=== PATIENT | male | born 1935 | race Caucasian/White ===

== ENCOUNTER 2018-07-08 10:41 | Emergency (ER) | payer OTHER ==
[2018-07-08] MEDS ORDERED: TETANUS & DIPHTHERIA TOX,ADULT 0.5 ML VIAL ONE (11:40)
[2018-07-08] MEDS ORDERED: ACETAMINOPHEN 500 MG TAB ONE (11:40)
--- NOTE | 2018-07-08 12:19 | RAD REPORT ---
EXAM DESCRIPTION: RAD - Elbow Right 3 View - 07/08/2018 12:10 pm CLINICAL HISTORY: Right elbow pain status post fall FINDINGS: No fracture or dislocation is seen. A wire is present within the proximal radius. Calcific ations in the soft tissues appear chronic
--- NOTE | 2018-07-08 12:28 | RAD REPORT ---
EXAM DESCRIPTION: RAD - Thoracic Spine Ap/Lat - 07/08/2018 12:10 pm CLINICAL HISTORY: Back pain FINDINGS: Mild kyphosis is present. The bones appear osteoporotic. Bridging osteophytes indicate diffuse idiopathic skeletal hyperostosis No fracture is seen. Mild spondylosis is present.
--- NOTE | 2018-07-08 12:56 | EDPHYS ---
Physician Documentation [facility] Name: Ozzy Villagran Age: 83 yrs Sex: Male : 1935 Arrival Date: 07/08/2018 Time: 10:43 Bed 4 Private MD: out of town, doctor ED Physician Derek Herrera HPI: 07/08 12:34 This 83 yrs old Male presents to ER via Ambulatory with complaints of Fall wa Injury, Skin Tear(s). 12:34 Details of fall: The patient fell from an upright position. Onset: The symptoms/episode wa began/occurred yesterday. Associated injuries: The patient sustained R elbow skin tear. mid-line upper back pain. Severity of symptoms: At their worst the symptoms were moderate, in the emergency department the symptoms are unchanged. The patient has not experienced similar symptoms in the past. The patient has not recently seen a physician. 12:35 denies LOC. denies FRANKLIN. denies chest pain or SOB. reason for fall unknown. wa Historical: - Allergies: 10:59 Codeine; aj - Home Meds: 10:59 amlodipine 10 mg tab 1 tab once daily [Active]; baclofen 10 mg Oral tab 1 tab 3 times aj per day [Active]; Sandra Aspirin 81 mg tab Oral tab 1 tab once daily [Active]; catapres patch 0.2 mg patch every week [Active]; donepezil 5 mg Oral tab [Active]; labetalol 200 mg Oral tab 2 tabs daily [Active]; Multi Vitamin Oral [Active]; Stool Softener Oral [Active]; Vesicare 10 mg Oral tab 1 tab once daily [Active]; omeprazole 20 mg Oral cpDR 1 cap once daily [Active]; - PMHx: 10:59 chronic back pain; Dementia; falls; GERD; Hypertension; aj - Immunization history: Last tetanus immunization: unknown. - Social history:: Smoking status: Patient/guardian denies using tobacco. - Ebola Screening: : Patient negative for fever greater than or equal to 101.5 degrees Fahrenheit, and additional compatible Ebola Virus Disease symptoms Patient denies exposure to infectious person Patient denies travel to an Ebola-affected area in the 21 days before illness onset No symptoms or risks identified at this time. - Family history:: not pertinent. - Hospitalizations: : No recent hospitalization is reported. ROS: 12:36 Constitutional: Negative for fever, chills, and weight loss, Eyes: Negative for injury, wa pain, redness, and discharge, ENT: Negative for injury, pain, and discharge, Neck: Negative for injury, pain, and swelling, Cardiovascular: Negative for chest pain, palpitations, and edema, Respiratory: Negative for shortness of breath, cough, wheezing, and pleuritic chest pain, Abdomen/GI: Negative for abdominal pain, nausea, vomiting, diarrhea, and constipation, MS/Extremity: Negative for injury and deformity, Skin: Negative for injury, rash, and discoloration, Neuro: Negative for headache, weakness, numbness, tingling, and seizure. 12:36 Back: Positive for pain with movement. 12:36 MS/extremity: Positive for pain, R elbow skin tear. 12:36 Skin: Positive for laceration(s), of the R elbow. 12:36 All other systems are negative. 12:36 All other systems are negative. Exam: 12:42 Constitutional: This is a well developed, well nourished patient who is awake, alert, wa and in no acute distress. Head/Face: Normocephalic, atraumatic. Eyes: Pupils equal round and reactive to light, extra-ocular motions intact. Lids and lashes normal. Conjunctiva and sclera are non-icteric and not injected. Cornea within normal limits. Periorbital areas with no swelling, redness, or edema. ENT: Nares patent. No nasal discharge, no septal abnormalities noted. Tympanic membranes are normal and external auditory canals are clear. Oropharynx with no redness, swelling, or masses, exudates, or evidence of obstruction, uvula midline. Mucous membranes moist. Neck: Trachea midline, no thyromegaly or masses palpated, and no cervical lymphadenopathy. Supple, full range of motion without nuchal rigidity, or vertebral point tenderness. No Meningismus. Chest/axilla: Normal chest wall appearance and motion. Nontender with no deformity. No lesions are appreciated. Cardiovascular: Regular rate and rhythm with a normal S1 and S2. No gallops, murmurs, or rubs. Normal PMI, no JVD. No pulse deficits. Respiratory: Lungs have equal breath sounds bilaterally, clear to auscultation and percussion. No rales, rhonchi or wheezes noted. No increased work of breathing, no retractions or nasal flaring. Abdomen/GI: Soft, non-tender, with normal bowel sounds. No distension or tympany. No guarding or rebound. No evidence of tenderness throughout. Neuro: Awake and alert, GCS 15, oriented to person, place, time, and situation. Cranial nerves II-XII grossly intact. Motor strength 5/5 in all extremities. Sensory grossly intact. Cerebellar exam normal. Normal gait. Psych: Awake, alert, with orientation to person, place and time. Behavior, mood, and affect are within normal limits. 12:42 Musculoskeletal/extremity: Extremities: noted in the thoracic area: pain, tenderness, mild tender thoracic spine. no step offs or brusing. 12:42 Skin: injury, R elbow skin tear. noted active bleed. Vital Signs: 10:55 BP 123 / 55; Pulse 71; Resp 15; Temp 98.4; Pulse Ox 97% on R/A; Weight 68.04 kg; Height aj 5 ft. 7 in. (170.18 cm); 12:55 BP 122 / 74; Pulse 70; Resp 16; Pulse Ox 97% on R/A; la1 10:55 Body Mass Index 23.49 (68.04 kg, 170.18 cm) aj Bobbi Coma Score: 10:55 Eye Response: spontaneous(4). Verbal Response: oriented(5). Motor Response: obeys aj commands(6). Total: 15. Trauma Score (Adult): 10:55 Eye Response: spontaneous(1); Verbal Response: oriented(1); Motor Response: obeys aj commands(2); Systolic BP: > 89 mm Hg(4); Respiratory Rate: 10 to 29 per min(4); Dallas Score: 15; Trauma Score: 12 Procedures: 12:51 Performed Wound cleansing: Wound cleaned with saline. Dressed with surgicel and gauze. wa bleed stopped. tolerated procedure well. . MDM: 11:10 Patient medically screened. 12:44 Differential diagnosis: r/o fx. update tetanus. pain meds po. check xrays. 12:44 Data reviewed: vital signs, nurses notes. 12:51 Test interpretation: by ED physician or midlevel provider: thoracic spine x-ray: no wa acute process. L elbow x-ray: no fx. no FB. Response to treatment: the patient's symptoms have markedly improved after treatment. 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 Exp: la1 07/20/2020. Lot #: [id number]. } Route: IM; Site: left deltoid; 12:55 Follow up: Response: No adverse reaction Disposition: 07/08/18 12:55 Discharged to Home. Impression: R elbow Skin tear , Thoracic strain. - Condition is Stable. - Discharge Instructions: Skin Tear Care, [id number]. - Medication Reconciliation Form, Thank You Letter, Antibiotic Education, Prescription Opioid Use form. - Follow up: Private Physician; When: 1 - 2 days; Reason: Re-evaluation by your physician. - Problem is new. - Symptoms have improved. - Notes: return tomorrow for surgicel removal and wound check. take tylenol for pain as needed Signatures: Dispatcher [employer] EDMS Catie Solano RN RN aj Attema, Lee, RN RN la1 Derek Herrera MD MD wa Corrections: (The following items were deleted from the chart) 12:55 12:55 07/08/2018 12:55 Discharged to Home. Impression: R elbow Skin tear ; Thoracic la1 strain. Condition is Stable. Forms are Medication Reconciliation Form, Thank You Letter, Antibiotic Education, Prescription Opioid Use. Follow up: Private Physician; When: 1 - 2 days; Reason: Re-evaluation by your physician. Problem is new. Symptoms have improved. ga 13:02 12:55 07/08/2018 12:55 Discharged to Home. Impression: R elbow Skin tear ; Thoracic la1 strain. Condition is Stable. Discharge Instructions: Skin Tear Care, [id number]. Forms are Medication Reconciliation Form, Thank You Letter, Antibiotic Education, Prescription Opioid Use. Follow up: Private Physician; When: 1 - 2 days; Reason: Re-evaluation by your physician. Problem is new. Symptoms have improved. la1
--- NOTE | 2018-07-08 12:56 | ER ---
Nurse's Notes [facility] Name: Ozzy Villagran Age: 83 yrs Sex: Male : 1935 Arrival Date: 07/08/2018 Time: 10:43 Bed 4 Private MD: out of town, doctor Diagnosis: R elbow Skin tear ;Thoracic strain Presentation: 07/08 10:55 Presenting complaint: Patient states: Fell from standing yesterday afternoon and hit right forearm on glass table. Reports skin tear to outer right forearm. 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 Denies LOC. Care prior to arrival: None. Mechanism of Injury: Fall from standing position. Trauma event details: Injury occurred in the [facility], Injury occurred: at home. Injury occurred: July 07, 2018. 10:55 Acuity: NIKUNJ 3 aj 10:55 Method Of Arrival: Ambulatory aj 11:40 Transition of care: patient was not received from another setting of care. Onset of la1 symptoms was July 08, 2018. Risk Assessment: Do you want to hurt yourself or someone else? Patient reports no desire to harm self or others. Initial Sepsis Screen: Does the patient meet any 2 criteria? No. Patient's initial sepsis screen is negative. Does the patient have a suspected source of infection? No. Patient's initial sepsis screen is negative. Trauma Activation: Not Applicable Physician: ED Physician; Name: ; Notified At: ; Arrived At: Physician: General Surgeon; Name: ; Notified At: ; Arrived At: Physician: Radiology; Name: ; Notified At: ; Arrived At: Physician: Respiratory; Name: ; Notified At: ; Arrived At: Physician: Lab; Name: ; Notified At: ; Arrived At: Historical: - Allergies: 10:59 Codeine; aj - Home Meds: 10:59 amlodipine 10 mg tab 1 tab once daily [Active]; baclofen 10 mg Oral tab 1 tab 3 times aj per day [Active]; Sandra Aspirin 81 mg tab Oral tab 1 tab once daily [Active]; catapres patch 0.2 mg patch every week [Active]; donepezil 5 mg Oral tab [Active]; labetalol 200 mg Oral tab 2 tabs daily [Active]; Multi Vitamin Oral [Active]; Stool Softener Oral [Active]; Vesicare 10 mg Oral tab 1 tab once daily [Active]; omeprazole 20 mg Oral cpDR 1 cap once daily [Active]; - PMHx: 10:59 chronic back pain; Dementia; falls; GERD; Hypertension; aj - Immunization history: Last tetanus immunization: unknown. - Social history:: Smoking status: Patient/guardian denies using tobacco. - Ebola Screening: : Patient negative for fever greater than or equal to 101.5 degrees Fahrenheit, and additional compatible Ebola Virus Disease symptoms Patient denies exposure to infectious person Patient denies travel to an Ebola-affected area in the 21 days before illness onset No symptoms or risks identified at this time. - Family history:: not pertinent. - Hospitalizations: : No recent hospitalization is reported. Screenin:40 Abuse screen: Denies threats or abuse. Nutritional screening: No deficits noted. la1 Tuberculosis screening: No symptoms or risk factors identified. Fall Risk Fall in past 12 months (25 points). No secondary diagnosis (0 pts). No IV (0 pts). Ambulatory Aid- None/Bed Rest/Nurse Assist (0 pts). Gait- Normal/Bed Rest/Wheelchair (0 pts) Mental Status- Oriented to own ability (0 pts). Primary Survey: 10:55 A: Airway: patent. Breathing/Chest: Respiratory pattern: regular, Respiratory effort: aj spontaneous, unlabored. Circulation: Skin color: pink, Skin temperature: warm, dry. Disability Alert. Assessment: 10:55 General: Appears in no apparent distress. comfortable, Behavior is calm, cooperative, aj appropriate for age. Pain: Complains of pain in low back area, mid back area and right arm. Neuro: Level of Consciousness is awake, alert, obeys commands, Oriented to person, place, time, situation, Appropriate for age. Respiratory: Airway is patent Respiratory effort is even, unlabored, Respiratory pattern is regular, symmetrical. Derm: Skin is intact, is healthy with good turgor, Skin is pink, warm \T\ dry. normal. Musculoskeletal: Reports pain in back and right arm. Injury Description: skin tear to right forearm. 11:40 Reassessment: Patient appears in no apparent distress at this time. No changes from la1 previously documented assessment. Patient and/or family updated on plan of care and expected duration. Pain level reassessed. Patient is alert, oriented x 3, equal unlabored respirations, skin warm/dry/pink. Injury Description: skin tear noted to right elbow, bleeding slightly. Dressing applied. 12:55 Reassessment: Patient appears in no apparent distress at this time. No changes from la1 previously documented assessment. Patient and/or family updated on plan of care and expected duration. Pain level reassessed. Patient is alert, oriented x 3, equal unlabored respirations, skin warm/dry/pink. Vital Signs: 10:55 BP 123 / 55; Pulse 71; Resp 15; Temp 98.4; Pulse Ox 97% on R/A; Weight 68.04 kg; Height aj 5 ft. 7 in. (170.18 cm); 12:55 BP 122 / 74; Pulse 70; Resp 16; Pulse Ox 97% on R/A; la1 10:55 Body Mass Index 23.49 (68.04 kg, 170.18 cm) aj Bobbi Coma Score: 10:55 Eye Response: spontaneous(4). Verbal Response: oriented(5). Motor Response: obeys aj commands(6). Total: 15. Trauma Score (Adult): 10:55 Eye Response: spontaneous(1); Verbal Response: oriented(1); Motor Response: obeys aj commands(2); Systolic BP: > 89 mm Hg(4); Respiratory Rate: 10 to 29 per min(4); Bobbi Score: 15; Trauma Score: 12 ED Course: 10:43 Patient arrived in ED. mr 10:44 out of town, doctor is Private Physician. mr 10:57 Triage completed. aj 10:59 Arm band placed on left wrist. Patient placed in an exam room. aj 11:10 Derek Herrera MD is Attending Physician. wa 11:39 Remi Veras RN is Primary Nurse. la1 11:40 Bed in low position. Call light in reach. la1 12:06 Elbow Right 3 View XRAY In Process Unspecified. EDMS 12:06 XRAY Thoracic Spine (Ap/lat) In Process Unspecified. EDMS 12:55 No provider procedures requiring assistance completed. Patient did not have IV access la1 during this emergency room visit. 12:56 Primary Nurse role handed off by Remi Veras, ESTEPHANIA la1 13:02 Remi Veras RN is Primary Nurse. 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 Exp: la1 07/20/2020. Lot #: [id number]. } Route: IM; Site: left deltoid; 12:55 Follow up: Response: No adverse reaction la1 Outcome: 12:55 Discharge ordered by . chase 12:55 Discharged to home ambulatory. la 12:55 Condition: stable 12:55 Discharge instructions given to patient, Instructed on discharge instructions, follow up and referral plans. medication usage, Demonstrated understanding of instructions, follow-up care. 12:55 Patient left the ED. la 13:02 Patient left the ED. la1 Signatures: Dispatcher [employer] EDCatie Rosales RN RN aj Rivera, Maria mr Attema, Lee, RN RN la1 Derek Herrera MD MD wa
[2018-07-08 13:06] VITALS: TEMP 98.4; O2SAT 97
[2018-07-08 13:07] VITALS: BP 122/74
== END 2018-07-08 13:02 | disposition home or self-care (01) ==
LOC: ER 10:41
DX: S51.011A Laceration without foreign body of right elbow, initial encounter (principal); W18.30XA Fall on same level, unspecified, initial encounter; Y93.9 Activity, unspecified; Y92.9 Unspecified place or not applicable; I10 Essential (primary) hypertension; K21.9 Gastro-esophageal reflux disease without esophagitis; Z91.81 History of falling
CPT/HCPCS: 72070; 90714; 99283

== ENCOUNTER 2018-07-10 12:44 | Emergency (ER) | payer OTHER ==
--- NOTE | 2018-07-10 13:50 | ER ---
Nurse's Notes [facility] Name: Ozzy Villagran Age: 83 yrs Sex: Male : 1935 Arrival Date: 07/10/2018 Time: 12:45 Bed 12 Private MD: out of town, doctor Diagnosis: Right Elbow Skin Tear ;wound check Presentation: 07/10 13:02 Presenting complaint: Patient states: had a fall the other day, was seen here and iw discharged, has skin tear to right elbow area, dressing in place, states he just wants the wound re-dressed and cleaned. Transition of care: patient was not received from another setting of care. Onset of symptoms was July 10, 2018. Risk Assessment: Do you want to hurt yourself or someone else? Patient reports no desire to harm self or others. Initial Sepsis Screen: Does the patient meet any 2 criteria? No. Patient's initial sepsis screen is negative. Does the patient have a suspected source of infection? No. Patient's initial sepsis screen is negative. Care prior to arrival: None. 13:02 Method Of Arrival: Ambulatory iw 13:02 Acuity: NIKUNJ 5 iw Triage Assessment: 13:35 General: Appears in no apparent distress. Behavior is calm, cooperative. iw Historical: - Allergies: 13:05 Codeine; iw - PMHx: 13:05 chronic back pain; Dementia; falls; GERD; Hypertension; iw - Immunization history:: Adult Immunizations up to date. - Social history:: Smoking status: Patient/guardian denies using tobacco. - Ebola Screening: : Patient negative for fever greater than or equal to 101.5 degrees Fahrenheit, and additional compatible Ebola Virus Disease symptoms Patient denies exposure to infectious person Patient denies travel to an Ebola-affected area in the 21 days before illness onset No symptoms or risks identified at this time. - Family history:: not pertinent. - Hospitalizations: : No recent hospitalization is reported. Screenin:55 Abuse screen: Denies threats or abuse. Denies injuries from another. Nutritional iw screening: No deficits noted. Tuberculosis screening: No symptoms or risk factors identified. Fall Risk None identified. Assessment: 13:35 General: Appears in no apparent distress. Behavior is calm, cooperative. Pain: iw Complains of pain in right elbow. Neuro: Level of Consciousness is awake, alert, obeys commands, Oriented to person, place, time. Respiratory: Respiratory effort is even, unlabored, Respiratory pattern is regular. Derm: Skin is fragile. Musculoskeletal: Range of motion: intact in all extremities. Injury Description: Abrasion sustained to right elbow. Vital Signs: 13:03 BP 128 / 50; Pulse 69; Resp 16; Temp 98.2; Pulse Ox 97% on R/A; Weight 61.23 kg; Height iw 5 ft. 7 in. (170.18 cm); Pain 0/10; 13:03 Body Mass Index 21.14 (61.23 kg, 170.18 cm) ED Course: 12:45 Patient arrived in ED. sb2 12:45 out of town, doctor is Private Physician. sb2 12:57 Armand Pettit, RN is Primary Nurse. sg 13:03 Triage completed. iw 13:03 Primary Nurse role handed off by Armand Pettit, ESTEPHANIA iw 13:03 Chel Ashley RN is Primary Nurse. iw 13:03 Arm band placed on. iw 13:04 Derek Herrera MD is Attending Physician. wa 13:39 No provider procedures requiring assistance completed. Patient did not have IV access iw during this emergency room visit. 13:40 Patient has correct armband on for positive identification. iw 13:40 Wound care: to skin tear located on right elbow was soaked in normal saline solution, iw dressed with Neosporin, 4X4s, Kerlix. Thermoregulation:. Administered Medications: No medications were administered Outcome: 13:39 Discharged to home ambulatory. iw 13:39 Condition: good 13:39 Discharge instructions given to patient, Instructed on discharge instructions, follow up and referral plans. Demonstrated understanding of instructions, follow-up care. 13:50 Discharge ordered by . wa 14:00 Patient left the ED. iw Signatures: Armand Pettit, RN ESTEPHANIA Chel Ashley RN RN Derek Herrera MD MD wa Billeau, Sheri sb2
--- NOTE | 2018-07-10 13:51 | EDPHYS ---
Physician Documentation [facility] Name: Ozzy Villagran Age: 83 yrs Sex: Male : 1935 Arrival Date: 07/10/2018 Time: 12:45 Bed 12 Private MD: out of town, doctor ED Physician Dreek Herrera HPI: 07/10 13:40 This 83 yrs old Male presents to ER via Ambulatory with complaints of CHANGE wa BANDAGE. 13:40 Patient presents to ED for recheck of: dressing. seen here and had surgicel placed for wa persistently bleeding skin tear. states told to come back for wound check and surgicel removal. otherwise has no other complaints. The affected area is on the R elbow. Previous treatment: The patient was initially treated 2 day(s) ago, the care was rendered at [facility], Treatment type: The patient's original treatment included dressing, w/ surgicel. Previous recheck: the patient has not been checked since the original treatment. Progress: The patient reports excellent improvement in the affected area. There has been resolution, improvement, or non-development of any drainage, fever, pain, redness or swelling. The patient has not experienced similar symptoms in the past. The patient has been recently seen by a physician: The patient has been recently seen at the [facility] Emergency Department. Historical: - Allergies: 13:05 Codeine; iw - PMHx: 13:05 chronic back pain; Dementia; falls; GERD; Hypertension; iw - Immunization history:: Adult Immunizations up to date. - Social history:: Smoking status: Patient/guardian denies using tobacco. - Ebola Screening: : Patient negative for fever greater than or equal to 101.5 degrees Fahrenheit, and additional compatible Ebola Virus Disease symptoms Patient denies exposure to infectious person Patient denies travel to an Ebola-affected area in the 21 days before illness onset No symptoms or risks identified at this time. - Family history:: not pertinent. - Hospitalizations: : No recent hospitalization is reported. ROS: 13:42 Constitutional: Negative for fever, chills, and weight loss, Eyes: Negative for injury, wa pain, redness, and discharge, ENT: Negative for injury, pain, and discharge, Neck: Negative for injury, pain, and swelling, Cardiovascular: Negative for chest pain, palpitations, and edema, Respiratory: Negative for shortness of breath, cough, wheezing, and pleuritic chest pain, Abdomen/GI: Negative for abdominal pain, nausea, vomiting, diarrhea, and constipation, Back: Negative for injury and pain, : Negative for injury, bleeding, discharge, and swelling, MS/Extremity: Negative for injury and deformity, Neuro: Negative for headache, weakness, numbness, tingling, and seizure, Psych: Negative for depression, anxiety, suicide ideation, homicidal ideation, and hallucinations. 13:42 Skin: Positive for of the R ELBOW , skin tear. 13:42 All other systems are negative. Exam: 13:44 Constitutional: This is a well developed, well nourished patient who is awake, alert, wa and in no acute distress. Head/Face: Normocephalic, atraumatic. Eyes: Pupils equal round and reactive to light, extra-ocular motions intact. Lids and lashes normal. Conjunctiva and sclera are non-icteric and not injected. Cornea within normal limits. Periorbital areas with no swelling, redness, or edema. ENT: Nares patent. No nasal discharge, no septal abnormalities noted. Tympanic membranes are normal and external auditory canals are clear. Oropharynx with no redness, swelling, or masses, exudates, or evidence of obstruction, uvula midline. Mucous membranes moist. Neck: Trachea midline, no thyromegaly or masses palpated, and no cervical lymphadenopathy. Supple, full range of motion without nuchal rigidity, or vertebral point tenderness. No Meningismus. Chest/axilla: Normal chest wall appearance and motion. Nontender with no deformity. No lesions are appreciated. Cardiovascular: Regular rate and rhythm with a normal S1 and S2. No gallops, murmurs, or rubs. Normal PMI, no JVD. No pulse deficits. Respiratory: Lungs have equal breath sounds bilaterally, clear to auscultation and percussion. No rales, rhonchi or wheezes noted. No increased work of breathing, no retractions or nasal flaring. Abdomen/GI: Soft, non-tender, with normal bowel sounds. No distension or tympany. No guarding or rebound. No evidence of tenderness throughout. Back: No spinal tenderness. No costovertebral tenderness. Full range of motion. MS/ Extremity: Pulses equal, no cyanosis. Neurovascular intact. Full, normal range of motion. Neuro: Awake and alert, GCS 15, oriented to person, place, time, and situation. Cranial nerves II-XII grossly intact. Motor strength 5/5 in all extremities. Sensory grossly intact. Cerebellar exam normal. Normal gait. Psych: Awake, alert, with orientation to person, place and time. Behavior, mood, and affect are within normal limits. 13:44 Skin: Wound recheck: surgicel adhered to wound. no active bleeding or signs of infection. Vital Signs: 13:03 BP 128 / 50; Pulse 69; Resp 16; Temp 98.2; Pulse Ox 97% on R/A; Weight 61.23 kg; Height iw 5 ft. 7 in. (170.18 cm); Pain 0/10; 13:03 Body Mass Index 21.14 (61.23 kg, 170.18 cm) Procedures: 13:46 Performed Wound dressing removal: succeeded in removing surgicel from wound after wa saline soak. post removal, no bleeding. pt tolerated procedure well. Dressed with bacitracin and gauze. no complications. MDM: 13:04 Patient medically screened. wa 13:45 Differential diagnosis: will soak surgicel with saline and attempt removal carefully to wa avoid rebleed. Data reviewed: vital signs, nurses notes. Administered Medications: No medications were administered Disposition: 07/10/18 13:50 Discharged to Home. Impression: Right Elbow Skin Tear , wound check. - Condition is Stable. - Discharge Instructions: Wound Check, Wound Care. - Medication Reconciliation Form, Thank You Letter, Antibiotic Education, Prescription Opioid Use form. - Follow up: Private Physician; When: As needed; Reason: Recheck today's complaints. - Problem is new. - Symptoms have improved. - Notes: keep clean. do not apply harsh chemicals to wound. follow up with your doctor if any signs of infection as discussed Signatures: Chel Ashley RN RN Derek Herrera MD MD wa Corrections: (The following items were deleted from the chart) 14:00 13:50 07/10/2018 13:50 Discharged to Home. Impression: Right Elbow Skin Tear ; wound iw check. Condition is Stable. Forms are Medication Reconciliation Form, Thank You Letter, Antibiotic Education, Prescription Opioid Use. Follow up: Private Physician; When: As needed; Reason: Recheck today's complaints. Problem is new. Symptoms have improved. wa
[2018-07-10 14:03] VITALS: BP 128/50; TEMP 98.2; O2SAT 97
== END 2018-07-10 14:00 | disposition home or self-care (01) ==
LOC: ER 12:44
DX: Z48.00 Encounter for change or removal of nonsurgical wound dressing (principal); Z88.6 Allergy status to analgesic agent
CPT/HCPCS: 99283

== ENCOUNTER 2019-08-14 05:04 | Emergency (ER) | payer OTHER ==
--- NOTE | 2019-08-14 05:43 | ER ---
Nurse's Notes [facility] Name: Ozzy Villagran Age: 84 yrs Sex: Male : 1935 Arrival Date: 08/14/2019 Time: 05:08 Bed 19 Private MD: Diagnosis: Abdominal tenderness;Ventral hernia Presentation: 08/14 05:11 Presenting complaint: EMS states: Called by patient's daughter who stated she saw his lp1 hernia sticking out and pushed it back in; patient asleep on arrival of EMS, no complaints, denies any pain, +ETOH. Transition of care: patient was not received from another setting of care. Onset of symptoms was August 14, 2019. Risk Assessment: Do you want to hurt yourself or someone else? Patient reports no desire to harm self or others. Initial Sepsis Screen: Does the patient meet any 2 criteria? No. Patient's initial sepsis screen is negative. Does the patient have a suspected source of infection? No. Patient's initial sepsis screen is negative. Care prior to arrival: None. 05:11 Method Of Arrival: EMS: [facility] lp1 05:11 Acuity: [id number] lp1 Historical: - Allergies: 05:16 Codeine; lp1 - Home Meds: 05:16 amlodipine 10 mg tab 1 tab once daily [Active]; baclofen 10 mg Oral tab 1 tab 3 times lp1 per day [Active]; Sandra Aspirin 81 mg tab Oral tab 1 tab once daily [Active]; catapres patch 0.2 mg patch every week [Active]; donepezil 5 mg Oral tab [Active]; labetalol 200 mg Oral tab 2 tabs daily [Active]; Multi Vitamin Oral [Active]; omeprazole 20 mg Oral cpDR 1 cap once daily [Active]; Stool Softener Oral [Active]; Vesicare 10 mg Oral tab 1 tab once daily [Active]; - PMHx: 05:16 chronic back pain; falls; Dementia; GERD; Hypertension; lp1 - Immunization history:: Adult Immunizations up to date. - Social history:: Smoking status: Patient/guardian denies using tobacco, Patient uses alcohol, on a daily basis. admits to "couple of beers" a day. - Ebola Screening: : No symptoms or risks identified at this time. - Family history:: not pertinent. Screenin:16 Abuse screen: Denies threats or abuse. Denies injuries from another. Nutritional lp1 screening: No deficits noted. Tuberculosis screening: No symptoms or risk factors identified. Fall Risk Total Esteban Fall Scale indicates High Risk Score (45 or more points). Fall prevention measures have been instituted. Side Rails Up X 2 Family Present and informed to notify staff if the need to leave the bedside As available patient and family educated on Fall Prevention Program and Strategies. Assessment: 05:15 General: Appears in no apparent distress. Behavior is calm, cooperative, appropriate lp1 for age. Pain: Denies pain. Neuro: Level of Consciousness is awake, alert, obeys commands, Oriented to person, place, situation. Cardiovascular: Patient's skin is warm and dry. Respiratory: Respiratory effort is even, unlabored. GI: Abdomen is non-distended, Abd is soft and non tender X 4 quads. : No deficits noted. EENT: No deficits noted. Derm: Skin is intact, Skin is dry, Skin is normal. Musculoskeletal: No deficits noted. Vital Signs: 05:12 BP 151 / 74; Pulse 69; Resp 18; Temp 97.7(O); Pulse Ox 100% on R/A; Weight 61.23 kg; lp1 Height 5 ft. 7 in. (170.18 cm); Pain 0/10; 05:12 Body Mass Index 21.14 (61.23 kg, 170.18 cm) lp1 ED Course: 05:08 Patient arrived in ED. lp1 05:12 Triage completed. lp1 05:13 Arm band placed on right wrist. lp1 05:16 Patient has correct armband on for positive identification. Placed in gown. lp1 05:26 Justyn Conway MD is Attending Physician. blake 05:40 [place] MD is Referral Physician. blake 05:43 Brenda Hennessy, ESTEPHANIA is Primary Nurse. lp1 05:44 No provider procedures requiring assistance completed. Patient did not have IV access lp1 during this emergency room visit. Administered Medications: No medications were administered Outcome: 05:42 Discharge ordered by . blake 05:55 Discharged to home via wheelchair, with family. lp1 05:55 Condition: good 05:55 Discharge instructions given to patient, family, Instructed on discharge instructions, follow up and referral plans. Demonstrated understanding of instructions, follow-up care. 06:05 Patient left the ED. lp1 Signatures: Justyn Conway MD MD cha Pena, Laura RN RN lp1
--- NOTE | 2019-08-14 05:43 | EDPHYS ---
Physician Documentation [facility] Name: Ozzy Villagran Age: 84 yrs Sex: Male : 1935 Arrival Date: 08/14/2019 Time: 05:08 Bed 19 Private MD: ED Physician Justyn Conway HPI: 08/14 05:37 This 84 yrs old Male presents to ER via EMS with complaints of VENTRAL HERNIA.blake 05:37 The patient presents with abdominal pain in the upper abdomen, in the lower abdomen. blake Onset: The symptoms/episode began/occurred just prior to arrival. The symptoms do not radiate. Associated signs and symptoms: none. Modifying factors: The symptoms are alleviated by nothing, the symptoms are aggravated by nothing. Severity of pain: At its worst the pain was very mild in the emergency department the pain has resolved. The patient has not experienced similar symptoms in the past. Historical: - Allergies: 05:16 Codeine; lp1 - Home Meds: 05:16 amlodipine 10 mg tab 1 tab once daily [Active]; baclofen 10 mg Oral tab 1 tab 3 times lp1 per day [Active]; Sandra Aspirin 81 mg tab Oral tab 1 tab once daily [Active]; catapres patch 0.2 mg patch every week [Active]; donepezil 5 mg Oral tab [Active]; labetalol 200 mg Oral tab 2 tabs daily [Active]; Multi Vitamin Oral [Active]; omeprazole 20 mg Oral cpDR 1 cap once daily [Active]; Stool Softener Oral [Active]; Vesicare 10 mg Oral tab 1 tab once daily [Active]; - PMHx: 05:16 chronic back pain; falls; Dementia; GERD; Hypertension; lp1 - Immunization history:: Adult Immunizations up to date. - Social history:: Smoking status: Patient/guardian denies using tobacco, Patient uses alcohol, on a daily basis. admits to "couple of beers" a day. - Ebola Screening: : No symptoms or risks identified at this time. - Family history:: not pertinent. ROS: 05:37 Constitutional: Negative for fever, chills, and weight loss, Eyes: Negative for injury, blake pain, redness, and discharge, ENT: Negative for injury, pain, and discharge, Neck: Negative for injury, pain, and swelling, Cardiovascular: Negative for chest pain, palpitations, and edema, Respiratory: Negative for shortness of breath, cough, wheezing, and pleuritic chest pain, Abdomen/GI: Negative for abdominal pain, nausea, vomiting, diarrhea, and constipation, Back: Negative for injury and pain, : Negative for injury, bleeding, discharge, and swelling, MS/Extremity: Negative for injury and deformity, Skin: Negative for injury, rash, and discoloration, Neuro: Negative for headache, weakness, numbness, tingling, and seizure, Psych: Negative for depression, anxiety, suicide ideation, homicidal ideation, and hallucinations, Allergy/Immunology: Negative for hives, rash, and allergies, Endocrine: Negative for neck swelling, polydipsia, polyuria, polyphagia, and marked weight changes, Hematologic/Lymphatic: Negative for swollen nodes, abnormal bleeding, and unusual bruising. Exam: 05:37 Constitutional: This is a well developed, well nourished patient who is awake, alert, blake and in no acute distress. Head/Face: Normocephalic, atraumatic. Eyes: Pupils equal round and reactive to light, extra-ocular motions intact. Lids and lashes normal. Conjunctiva and sclera are non-icteric and not injected. Cornea within normal limits. Periorbital areas with no swelling, redness, or edema. ENT: Nares patent. No nasal discharge, no septal abnormalities noted. Tympanic membranes are normal and external auditory canals are clear. Oropharynx with no redness, swelling, or masses, exudates, or evidence of obstruction, uvula midline. Mucous membranes moist. Neck: Trachea midline, no thyromegaly or masses palpated, and no cervical lymphadenopathy. Supple, full range of motion without nuchal rigidity, or vertebral point tenderness. No Meningismus. Chest/axilla: Normal chest wall appearance and motion. Nontender with no deformity. No lesions are appreciated. Cardiovascular: Regular rate and rhythm with a normal S1 and S2. No gallops, murmurs, or rubs. Normal PMI, no JVD. No pulse deficits. Respiratory: Lungs have equal breath sounds bilaterally, clear to auscultation and percussion. No rales, rhonchi or wheezes noted. No increased work of breathing, no retractions or nasal flaring. Abdomen/GI: Soft, non-tender, with normal bowel sounds. No distension or tympany. No guarding or rebound. No evidence of tenderness throughout. Back: No spinal tenderness. No costovertebral tenderness. Full range of motion. Male : Normal genitalia with no discharge or lesions. Skin: Warm, dry with normal turgor. Normal color with no rashes, no lesions, and no evidence of cellulitis. MS/ Extremity: Pulses equal, no cyanosis. Neurovascular intact. Full, normal range of motion. Neuro: Awake and alert, GCS 15, oriented to person, place, time, and situation. Cranial nerves II-XII grossly intact. Motor strength 5/5 in all extremities. Sensory grossly intact. Cerebellar exam normal. Normal gait. Psych: Awake, alert, with orientation to person, place and time. Behavior, mood, and affect are within normal limits. Vital Signs: 05:12 BP 151 / 74; Pulse 69; Resp 18; Temp 97.7(O); Pulse Ox 100% on R/A; Weight 61.23 kg; lp1 Height 5 ft. 7 in. (170.18 cm); Pain 0/10; 05:12 Body Mass Index 21.14 (61.23 kg, 170.18 cm) lp1 MDM: 05:27 Patient medically screened. [facility] 05:40 Data reviewed: vital signs, nurses notes. [facility] Administered Medications: No medications were administered Disposition: 08/14/19 05:42 Discharged to Home. Impression: Abdominal tenderness, Ventral hernia. - Condition is Stable. - Discharge Instructions: Abdominal Pain, Adult, Abdominal Pain, Adult, [id number], Ventral Hernia. - Medication Reconciliation Form, Thank You Letter, Antibiotic Education, Prescription Opioid Use form. - Follow up: Private Physician; When: 2 - 3 days; Reason: Recheck today's complaints, Continuance of care, Re-evaluation by your physician. Follow up: [place] MD; When: 2 - 3 days; Reason: Recheck today's complaints, Continuance of care, Re-evaluation by your physician. - Problem is new. - Symptoms have improved. Signatures: Justyn Conway MD MD cha Pena, Laura RN RN lp1 Corrections: (The following items were deleted from the chart) 06:05 05:42 08/14/2019 05:42 Discharged to Home. Impression: Abdominal tenderness; Ventral lp1 hernia. Condition is Stable. Forms are Medication Reconciliation Form, Thank You Letter, Antibiotic Education, Prescription Opioid Use. Follow up: Private Physician; When: 2 - 3 days; Reason: Recheck today's complaints, Continuance of care, Re-evaluation by your physician. Follow up: [place]; When: 2 - 3 days; Reason: Recheck today's complaints, Continuance of care, Re-evaluation by your physician. Problem is new. Symptoms have improved. blake
== END 2019-08-14 06:05 | disposition home or self-care (01) ==
LOC: ER 05:04
DX: K43.9 Ventral hernia without obstruction or gangrene (principal); I10 Essential (primary) hypertension; F03.90 Unspecified dementia, unspecified severity, without behavioral disturbance, psychotic disturbance, mood disturbance, and anxiety; Z79.82 Long term (current) use of aspirin; Z88.5 Allergy status to narcotic agent
CPT/HCPCS: 99283

== ENCOUNTER 2019-10-04 12:35 | Emergency (ER) | payer OTHER ==
--- OUTSIDE RECORDS SUMMARY | 2019-10-04 12:37 | XMS REPORT ---
:1935 Author Organization e[employer] Care Team Providers Name Role Phone Emerald Jack Provider Role Unavailable Allergies, Adverse Reactions, Alerts Substance Reaction Event Type codeine hives Drug Allergy Problems Problem Type Condition Code Onset Dates Condition Status Assessment HTN (hypertension) I10 Active Assessment Depression with anxiety F41.8 Active Assessment Other chronic pain G89.29 Active Assessment Low back pain M54.5 Active Problem Erectile dysfunction F52.21 Active Problem HTN (hypertension) I10 Active Problem Other chronic pain G89.29 Active Problem Reflux K21.9 Active Problem Urge incontinence of urine N39.41 Active Problem History of prostate cancer Z85.46 Active Problem Depression with anxiety F41.8 Active Medications Medication Code Code Instructions Start End Status Dosage System Date Date Tramadol HCl [facility] 08947985867 50 MG Orally Active 1 tablet as BID needed Lorazepam [facility] 78336132766 0.5 MG Orally Oct 08, Active 1 tablet as Once a day 2018 needed Namenda [facility] 11778253215 10 MG Orally Active 1 tablet Twice a day Baclofen [facility] 89217656839 10 MG Orally Oct 08, Active 1 tablet bid 2018 with food or milk Omeprazole [facility] 70046400385 20 MG Orally Oct 08, Active 1 tablet Once a day 2018 labetalol [facility] 84706517808 200mg orally po Oct 08, Active 2 tabs 2018 Stool Softener [facility] 37423959053 100 MG Orally Oct 08, Active 1 tablet as Once a day 2018 needed Aspirin Adult [facility] 71809136188 81 MG Orally Oct 08, Active 1 tablet Low Dose Once a day 2018 Razadyne ER [facility] 41801501831 16 MG Orally Active 1 capsule Once a day with breakfast Stool Softener [facility] 40235232449 100 MG Orally Oct 08, Active 1 tablet as Once a day 2018 needed Topamax [facility] 76503894375 25 MG Orally Active 1 tablet Once a day Amlodipine ND 81801441092 10 MG Orally Oct 08, Active 1 tablet Besylate Once a day 2018 Paroxetine HCl [facility] 72455982371 10 MG Orally Jul 31, Active 1 tablet in Once a day 2018 the morning Clonidine HCl [facility] 93409914319 0.2 MG/24HR Jul 31, Active 1 patch to Transdermal 2018 skin once a week Multivitamin [facility] 77970233744 - Orally Jul 31, Active as directed Adult 2018 Results No Known Results Summary Purpose eClinicalWorks Submission
--- OUTSIDE RECORDS SUMMARY | 2019-10-04 12:37 | XMS REPORT ---
:1935 Author Organization [employer] Care Team Providers Name Role Phone Emerald Jack Provider Role Unavailable Allergies, Adverse Reactions, Alerts Substance Reaction Event Type codeine hives Drug Allergy Problems Problem Type Condition Code Onset Dates Condition Status Assessment HTN (hypertension) I10 Active Assessment Depression with anxiety F41.8 Active Assessment History of prostate cancer Z85.46 Active Assessment Urge incontinence of urine N39.41 Active Assessment Reflux K21.9 Active Problem HTN (hypertension) I10 Active Problem History of prostate cancer Z85.46 Active Problem Erectile dysfunction F52.21 Active Problem Urge incontinence of urine N39.41 Active Problem Depression with anxiety F41.8 Active Problem Reflux K21.9 Active Medications Medication Code Code Instructions Start End Status Dosage System Date Date Amlodipine [facility] 55542814695 10 MG Orally Jul 08, Active 1 tablet Besylate Once a day 2018 Clonidine HCl [facility] [address]-62 0.2 MG/24HR Jul 31, Active 1 patch to Transdermal 2018 skin once a week Namenda [facility] 75547174808 10 MG Orally Active 1 tablet Twice a day Multivitamin [facility] 30154948742 - Orally Jul 31, Active as directed Adult 2018 Baclofen [facility] [address]-99 10 MG Orally Jul 08, Active 1 tablet bid 2018 with food or milk Paroxetine HCl [facility] 19344741173 10 MG Orally Jul 08, Active 1 tablet in Once a day 2018 the morning Razadyne ER [facility] 99895275779 16 MG Orally Active 1 capsule Once a day with breakfast Tramadol HCl [facility] 33239219421 50 MG Oral Active (Schedule IV Drug) TAKE 1 TABLET BY MOUTH EVERY 6 HOURS NEEDED Aspirin Adult [facility] 69358528019 81 MG Orally Jul 08, Active 1 tablet Low Dose Once a day 2018 Lorazepam [facility] [address]-02 0.5 MG Orally Jul 08, Active 1 tablet as Once a day 2018 needed Topamax [facility] [address]-93 25 MG Orally Active 1 tablet Once a day Stool Softener [facility] 02300758173 100 MG Orally Jul 31, Active 1 tablet as Once a day 2018 needed Omeprazole NDC 01832743820 20 MG Orally Jul 31, Active 1 tablet Once a day 2018 labetalol NDC 0 200mg orally po Jul 31, Active 2 tabs 2018 Stool Softener ND 69535880512 100 MG Orally Jul 31, Active 1 tablet as Once a day 2017 needed Results No Known Results Summary Purpose eClinicalWorks Submission
--- NOTE | 2019-10-04 13:41 | EDPHYS ---
Physician Documentation [facility] Name: Ozzy Villagran Age: 84 yrs Sex: Male : 1935 Arrival Date: 10/04/2019 Time: 12:39 Bed 10 Private MD: ED Physician Maykel Hilario HPI: 10/04 13:37 This 84 yrs old Male presents to ER via Ambulatory with complaints of Fall jr8 Injury, Skin Tear(s). 13:37 Details of fall: The patient fell from an upright position, while standing. Onset: The jr8 symptoms/episode began/occurred acutely, yesterday. Associated injuries: The patient sustained right arm and left arm. Severity of symptoms: At their worst the symptoms were mild, in the emergency department the symptoms are unchanged. The patient has not experienced similar symptoms in the past. The patient has not recently seen a physician. Accidental fall yesterday that caused various skin tears. Historical: - Allergies: 12:58 Codeine; tw2 - PMHx: 12:58 chronic back pain; Dementia; falls; GERD; Hypertension; tw2 - Immunization history:: Adult Immunizations Last tetanus immunization: < 5 years ago. - Social history:: Smoking status: . - Ebola Screening: : Patient denies travel to an Ebola-affected area in the 21 days before illness onset. ROS: 13:37 Eyes: Negative for injury, pain, redness, and discharge, ENT: Negative for injury, jr8 pain, and discharge, Neck: Negative for injury, pain, and swelling, Cardiovascular: Negative for chest pain, palpitations, and edema, Respiratory: Negative for shortness of breath, cough, wheezing, and pleuritic chest pain, Abdomen/GI: Negative for abdominal pain, nausea, vomiting, diarrhea, and constipation, Back: Negative for injury and pain, MS/Extremity: Negative for injury and deformity, Neuro: Negative for headache, weakness, numbness, tingling, and seizure. 13:37 Skin: Positive for avulsion, of the right arm and left arm. Exam: 13:37 Eyes: Pupils equal round and reactive to light, extra-ocular motions intact. Lids and jr8 lashes normal. Conjunctiva and sclera are non-icteric and not injected. Cornea within normal limits. Periorbital areas with no swelling, redness, or edema. ENT: Nares patent. No nasal discharge, no septal abnormalities noted. Tympanic membranes are normal and external auditory canals are clear. Oropharynx with no redness, swelling, or masses, exudates, or evidence of obstruction, uvula midline. Mucous membranes moist. Neck: Trachea midline, no thyromegaly or masses palpated, and no cervical lymphadenopathy. Supple, full range of motion without nuchal rigidity, or vertebral point tenderness. No Meningismus. Cardiovascular: Regular rate and rhythm with a normal S1 and S2. No gallops, murmurs, or rubs. Normal PMI, no JVD. No pulse deficits. Respiratory: Lungs have equal breath sounds bilaterally, clear to auscultation and percussion. No rales, rhonchi or wheezes noted. No increased work of breathing, no retractions or nasal flaring. Abdomen/GI: Soft, non-tender, with normal bowel sounds. No distension or tympany. No guarding or rebound. No evidence of tenderness throughout. Back: No spinal tenderness. No costovertebral tenderness. Full range of motion. MS/ Extremity: Pulses equal, no cyanosis. Neurovascular intact. Full, normal range of motion. Neuro: Awake and alert, GCS 15, oriented to person, place, time, and situation. Cranial nerves II-XII grossly intact. Motor strength 5/5 in all extremities. Sensory grossly intact. Cerebellar exam normal. Normal gait. 13:37 Skin: Moderate sized skin tear noted to right triceps region. Smaller skin tears to lower right and left arms. Vital Signs: 12:57 BP 98 / 74; Pulse 79; Resp 17; Temp 98.9(TE); Pulse Ox 96% on R/A; Weight 56.7 kg (R); tw2 Height 5 ft. 5 in. (165.10 cm); Pain 0/10; 12:57 Body Mass Index 20.80 (56.70 kg, 165.10 cm) tw2 MDM: 13:12 Patient medically screened. [facility] 13:37 Data reviewed: vital signs, nurses notes, and as a result, I will discharge patient. jr8 Data interpreted: Pulse oximetry: on room air is 96 %. Interpretation: normal. Counseling: I had a detailed discussion with the patient and/or guardian regarding: the historical points, exam findings, and any diagnostic results supporting the discharge/admit diagnosis, the need for outpatient follow up, a family practitioner, to return to the emergency department if symptoms worsen or persist or if there are any questions or concerns that arise at home. ED course: Patient had Steri-Strips applied to larger skin tear. Everything else did not required treatment. Patient doing well and will follow up . 10/04 13:35 Order name: Wound dressing; Complete Time: 13:35 tw2 Administered Medications: No medications were administered Disposition: 10/04/19 13:40 Discharged to Home. Impression: Avulsion of skin . - Condition is Stable. - Discharge Instructions: Deep Skin Avulsion. - Medication Reconciliation Form, Thank You Letter, Antibiotic Education, Prescription Opioid Use form. - Follow up: Private Physician; When: As needed; Reason: Wound Recheck, Recheck today's complaints, Continuance of care, Re-evaluation by your physician. - Problem is new. - Symptoms have improved. Signatures: Marino Madrigal PA PA jr8 Elda Fajardo RN RN tw2 Corrections: (The following items were deleted from the chart) 13:47 13:40 10/04/2019 13:40 Discharged to Home. Impression: Avulsion of skin . Condition is tw2 Stable. Forms are Medication Reconciliation Form, Thank You Letter, Antibiotic Education, Prescription Opioid Use. Follow up: Private Physician; When: As needed; Reason: Wound Recheck, Recheck today's complaints, Continuance of care, Re-evaluation by your physician. Problem is new. Symptoms have improved. tiffany
--- NOTE | 2019-10-04 13:41 | ER ---
Nurse's Notes [facility] Name: Ozzy Villagran Age: 84 yrs Sex: Male : 1935 Arrival Date: 10/04/2019 Time: 12:39 Bed 10 Private MD: Diagnosis: Avulsion of skin Presentation: 10/04 12:51 Presenting complaint: Patient states: i fell yesterday, i was walking and stumbled a tw2 little and fell over and scraped my RIGHT arm, so i got a skin tear i just need someone to look at it , it is bruised but i can move it fine. Transition of care: patient was not received from another setting of care. Onset of symptoms was October 04, 2019. Risk Assessment: Do you want to hurt yourself or someone else? Patient reports no desire to harm self or others. Initial Sepsis Screen: Does the patient meet any 2 criteria? No. Patient's initial sepsis screen is negative. Does the patient have a suspected source of infection? No. Patient's initial sepsis screen is negative. Care prior to arrival: None. 12:51 Method Of Arrival: Ambulatory tw2 12:51 Acuity: [id number] tw2 12:56 Note large skin tear noted to upper RIGHT arm, covered with nonadherent dressing and tw2 antonio wrap at this time as pts shirt was irritating it. also noted skin tear to back of right forearm. Triage Assessment: 12:57 General: Appears in no apparent distress. slender, well groomed, Behavior is calm, tw2 cooperative, appropriate for age. Pain: Complains of pain in right arm. Historical: - Allergies: 12:58 Codeine; tw2 - PMHx: 12:58 chronic back pain; Dementia; falls; GERD; Hypertension; tw2 - Immunization history:: Adult Immunizations Last tetanus immunization: < 5 years ago. - Social history:: Smoking status: . - Ebola Screening: : Patient denies travel to an Ebola-affected area in the 21 days before illness onset. Screenin:47 Abuse screen: Denies threats or abuse. Nutritional screening: No deficits noted. tw2 Tuberculosis screening: No symptoms or risk factors identified. Fall Risk Fall in past 12 months (25 points). Secondary diagnosis (15 points) impaired mobility. Assessment: 13:47 Reassessment: Patient appears in no apparent distress at this time. No changes from tw2 previously documented assessment. Patient and/or family updated on plan of care and expected duration. Pain level reassessed. Patient is alert, oriented x 3, equal unlabored respirations, skin warm/dry/pink. Vital Signs: 12:57 BP 98 / 74; Pulse 79; Resp 17; Temp 98.9(TE); Pulse Ox 96% on R/A; Weight 56.7 kg (R); tw2 Height 5 ft. 5 in. (165.10 cm); Pain 0/10; 12:57 Body Mass Index 20.80 (56.70 kg, 165.10 cm) tw2 ED Course: 12:39 Patient arrived in ED. mr 12:56 Triage completed. tw2 12:57 Arm band placed on. tw2 13:10 Bed in low position. tw2 13:12 Marino Madrigal PA is PHCP. jr8 13:12 Maykel Hilario MD is Attending Physician. jr8 13:35 Elda Fajardo, RN is Primary Nurse. tw2 Administered Medications: No medications were administered Outcome: 13:40 Discharge ordered by . jr8 13:47 Patient left the ED. tw2 Signatures: Janessa Grajeda mr Marino Madrigal PA PA jr8 Elda Fajardo, RN RN tw2
== END 2019-10-04 13:47 | disposition home or self-care (01) ==
LOC: ER 12:35
DX: S41.102A Unspecified open wound of left upper arm, initial encounter (principal); S41.101A Unspecified open wound of right upper arm, initial encounter; W19.XXXA Unspecified fall, initial encounter; Y93.9 Activity, unspecified; Y92.9 Unspecified place or not applicable; Z88.5 Allergy status to narcotic agent; I10 Essential (primary) hypertension; F03.90 Unspecified dementia, unspecified severity, without behavioral disturbance, psychotic disturbance, mood disturbance, and anxiety
CPT/HCPCS: 99281